=== PATIENT | female | born 1940 | race Caucasian/White ===

== ENCOUNTER 2025-07-21 17:21 | Inpatient (IN) | payer OTHER, MEDICARE ==
[2025-07-21 18:03] LABS: ABSOLUTE IMMATURE GRANULOCYTES 0.01 x10^3/uL (0.0-0.031); BASOPHILS # 0.03 x10^3/uL (0.01-0.08); EOSINOPHIL % 1.5 % (0.7-5.8); EOSINOPHILS # 0.10 x10^3/uL (0.04-0.36); MCHC 32.4 g/dl (32.2-35.5); MEAN CELL VOLUME 95.1 fl (79.4-94.8); MEAN PLT VOLUME 10.3 fl (9.4-12.3); MONOCYTE # 0.70 x10^3/uL (0.24-0.86); MONOCYTE % 10.8 % (4.7-12.5); RDW 13.7 % (12.5-17.0)
[2025-07-21] MEDS ORDERED: ASPIRIN 81 MG CHEWABLE TABLETS ONE (18:50)
[2025-07-21] MEDS: ASPIRIN 81 MG CHEWABLE TABLETS PO ONE (18:53)
[2025-07-21 19:07] LABS: GLUCOSE,RANDOM 108.0 mg/dL (74-106)
[2025-07-21 19:08] LABS: TOT PROT 7.6 g/dl (6.4-8.2)
[2025-07-21 19:09] LABS: CO2 28.0 mmol/L (21-32)
[2025-07-21 19:10] LABS: ALK PHOS 60.0 U/L (40-150)
[2025-07-21 19:13] LABS: CREATININE 1.1 mg/dL (0.55-1.3); SGOT/AST 32.0 U/L (5-34); SGPT/ALT 13.0 U/L (0-55)
[2025-07-21 20:58] LABS: HCV DIAGNOSTIC IN-HOUSE W/RFLX NON-REACTIVE (NONREACTIVE); HIV INTERPRETATION NEGATIVE (NEGATIVE)
[2025-07-21 21:45] VITALS: BMI 24.9
[2025-07-21] MEDS: ROSUVASTATIN CA 5 MG TABLET PO SCH (22:16)
[2025-07-22] MEDS: LEVOTHYROXINE NA 50 MCG TABLET (FP) PO SCH (06:23)
[2025-07-22 07:43] LABS: ABSOLUTE IMMATURE GRANULOCYTES 0.00 x10^3/uL (0.0-0.031); BASOPHILS # 0.02 x10^3/uL (0.01-0.08); EOSINOPHIL % 3.6 % (0.7-5.8); EOSINOPHILS # 0.18 x10^3/uL (0.04-0.36); MCHC 32.5 g/dl (32.2-35.5); MEAN CELL VOLUME 95.9 fl (79.4-94.8); MEAN PLT VOLUME 10.2 fl (9.4-12.3); MONOCYTE # 0.59 x10^3/uL (0.24-0.86); MONOCYTE % 11.7 % (4.7-12.5); RDW 13.6 % (12.5-17.0)
[2025-07-22 10:32] LABS: GLUCOSE,RANDOM 89.0 mg/dL (74-106)
[2025-07-22 10:34] LABS: CO2 28.0 mmol/L (21-32)
[2025-07-22 10:38] LABS: CREATININE 1.14 mg/dL (0.55-1.3); LDL CHOLESTEROL (ONLY SJRH) 61.0 mg/dL (5-100)
[2025-07-22] MEDS: ASPIRIN 81 MG CHEWABLE TABLETS PO SCH (11:47)
[2025-07-22] MEDS: ROSUVASTATIN CA 5 MG TABLET PO SCH (21:24)
[2025-07-23 16:04] LABS: ALK PHOS 58.0 U/L (45-117); CO2 31.0 mmol/L (21-32); CREATININE 1.0 mg/dl (0.6-1.3); GLUCOSE,RANDOM 97.0 mg/dl (74-106); SGOT/AST 21.0 U/L (15-37); SGPT/ALT 10.0 U/L (7-52); TOT PROT 7.1 g/dl (6.4-8.2)
[2025-07-25 02:04] VITALS: RESP 18
[2025-07-25] MEDS ORDERED: REGADENOSON 0.4 MG/5 ML PRE-FILLED SYRINGE IVPUSH ONE (09:27)
[2025-07-25] MEDS: REGADENOSON 0.4 MG/5 ML PRE-FILLED SYRINGE IVPUSH ONE (12:13)
[2025-07-25] MEDS: CYANOCOBALAMIN 1,000 MCG TABLET (FP) PO SCH (14:09)
[2025-07-25] MEDS: MULTIVITAMINS (DAILY MVI) TABLET (FP) PO SCH (14:10)
[2025-07-25] MEDS: CHOLECALCIFEROL (VIT D3) 1,000 UNIT (25 MCG) TABLET PO SCH (14:10)
[2025-07-25 14:15] VITALS: BP 167/87; PULSE 57; TEMP 98
== END 2025-07-25 18:01 | disposition home or self-care (01) | DRG 313 ==
LOC: FER 17:21 → FM/S 19:23 → OBSVTOIN 07-23 11:42
PROVIDERS: ADMIT Student in an Organized Health Care Education/Training Program
DX: R07.89 Other chest pain (principal); I10 Essential (primary) hypertension; E78.5 Hyperlipidemia, unspecified; F41.8 Other specified anxiety disorders; E03.9 Hypothyroidism, unspecified; K21.9 Gastro-esophageal reflux disease without esophagitis; M81.0 Age-related osteoporosis without current pathological fracture; I49.1 Atrial premature depolarization; E78.00 Pure hypercholesterolemia, unspecified
CPT/HCPCS: 36415; 71045-TC-FY; 78452-TC; 80048; 80053; 80061; 84443; 84484; 85025; 86803; 87389; 93005; 93017; 93306-TC; 97116-GP; 97162-GP; 99285-25; A9502; G0378; J2785